=== PATIENT | female | born 1950 | race Caucasian/White ===

== ENCOUNTER 2019-05-19 11:32 | Emergency (ER) | payer MEDICARE, OTHER ==
[~2019-05-19] VITALS: Ht 165.1 cm; Wt 95.0 kg
[~2019-05-19 11:32] MED LIST: LEVO25TA4 PO; LISI-167 PO; LOSA25TA25 PO; METO200T47 PO; METO25TA35 PO; OMEP-110 PO; SIMV40TA20 PO
[2019-05-19 11:34] VITALS: BP 189/79
--- NOTE | 2019-05-19 11:51 | NUR ---
PT PRESENTING TO ER FOR INCREASED SOB, WORSENING AT NIGHT WHEN LAYING DOWN. PT STS HX OF ANXIETY AND IS UNSURE IF THIS IS RELATED TO HOW SHES FEELING. CONNECTED TO ALL MONITORING, VSS AT THIS TIME. CALL LIGHT WITHIN REACH. MD AT BEDSIDE FOR ASSESSMENT
[2019-05-19 12:23] LABS: BASOPHILS # (AUTO) 0.03 x10^3/uL (0-0.1); BASOPHILS % (AUTO) 1 % (0-1); EOSINOPHILS # (AUTO) 0.06 x10^3/uL (0-0.4); EOSINOPHILS % (AUTO) 2 % (1-7); LYMPHOCYTES # (AUTO) 1.52 x10^3/uL (1-3.4); LYMPHOCYTES % (AUTO) 38 % (22-44); MD NO; MEAN CORPUSCULAR HEMOGLOBIN 31.1 pg (27.0-34.8); MEAN CORPUSCULAR HGB CONC 34.8 g/dL (32.4-35.8); MEAN CORPUSCULAR VOLUME 89.6 fL (80-100); MEAN PLATELET VOLUME 8.9 fL (7.4-10.4); MONOCYTES # (AUTO) 0.31 x10^3/uL (0.2-0.8); MONOCYTES % (AUTO) 8 % (2-9); NEUTROPHILS # (AUTO) 2.05 x10^3/uL (1.8-6.8); NEUTROPHILS % (AUTO) 52 % (42-75); PLATELET COUNT 214 x10^3/uL (130-400); RED BLOOD COUNT 5.32 x10^6/uL (3.82-5.3)
[2019-05-19 12:34] LABS: ALBUMIN 3.6 g/dL (3.4-5.0); ANION GAP 8 mmol/L (5-15); CALCIUM 8.8 mg/dL (8.5-10.1); CHLORIDE 108 mmol/L (98-107)
[2019-05-19 12:37] LABS: TROPONIN I < 0.015 ng/mL (0.000-0.045)
--- NOTE | 2019-05-19 12:41 | NUR ---
PT UP TO RESTROOM WITH STEADY GAIT. NADN.
--- NOTE | 2019-05-19 12:58 | NUR ---
MD TO BEDSIDE TO UPDATE PT ON POC
== END 2019-05-19 13:12 | disposition home or self-care (01) ==
LOC: ED 12:26
DX: R07.89 Other chest pain (principal); R06.00 Dyspnea, unspecified; K21.9 Gastro-esophageal reflux disease without esophagitis; I10 Essential (primary) hypertension; Z86.39 Personal history of other endocrine, nutritional and metabolic disease
CPT/HCPCS: 36415; 71045; 80048; 82040; 83880; 84443; 84484; 85025; 93005; 99285